=== PATIENT | male | born 1955 | race Caucasian/White ===

== ENCOUNTER 2020-03-31 13:43 | Outpatient (REF) | payer OTHER, SELFPAY ==
--- NOTE | 2020-03-31 | CT_ITS ---
EXAMINATION: CT CHEST SCREENING CLINICAL INFORMATION: Nicotine dependency. COMPARISON: CT chest 03/23/2019 TECHNIQUE: Multidetector volumetric CT imaging of the chest is performed without contrast using low dose technique. Additional 2D coronal and sagittal reformatted images and axial 3D maximum intensity projection (MIP) images are generated on the CT workstation. This CT examination was performed using dose optimization techniques as appropriate, variously including the following: *Automated exposure control *Adjustment of mA and/or kV according to patient size (this includes techniques or standardized protocols for targeted exams where dose is matched to indication/reason for exam; i.e. extremities or head) *Use of iterative reconstruction technique DLP: 241 mGy-cm FINDINGS: LUNGS: The lungs are well-expanded and clear of acute pneumonic process. Subpleural reticulation and cystic changes right upper lobe axial image 109/7, 2 mm calcified nodule right upper lobe image 145/7 appears stable. Previously seen right middle lobe medial segment nodule, left lower lobe subpleural nodule previously seen on image 268/4 is not visualized. There is a 3 mm noncalcified nodule along the left major fissure axial image 304/7 appears more prominent than the previous study. 2 mm calcified nodule left lower lobe axial image 376/7 appears stable. No new nodules are seen. MEDIASTINUM: The thyroid lobes are symmetrical and normal. The central trachea and the bronchi are widely patent. The heart size and great vessels are normal caliber. No abnormal size mediastinal lymph nodes seen. There is no pericardial effusion. There are coronary artery calcifications present. PLEURA: There is no pleural effusion. No pleural mass or thickening. AXILLA: No abnormal sized axillary lymph nodes seen. UPPER ABDOMEN: Visualized liver, spleen, pancreas, and bilateral adrenal glands are unremarkable. There is upper pole left renal cyst. OSSEOUS STRUCTURES: There is no lytic or sclerotic process seen. CT/CT lung screening IMPRESSION: Majority of the nodules are stable. 2 nodules in right middle lobe and left lower lobe subpleural location are not visualized at this time. There are no new nodules seen. There is no abnormal lymphadenopathy. ASSESSMENT: Lung-RADS category 2: Benign. RECOMMENDATION: Low-dose annual chest CT followup.
== END 2020-03-31 13:44 | disposition home or self-care (01) ==
LOC: HO.CT 13:43
PROVIDERS: PCP Family Medicine; Visit Provider Surgery
DX: Z12.2 Encounter for screening for malignant neoplasm of respiratory organs (principal); F17.210 Nicotine dependence, cigarettes, uncomplicated
CPT/HCPCS: 71250

== ENCOUNTER 2021-06-20 13:09 | Outpatient (REF) | payer OTHER, SELFPAY ==
--- NOTE | ~2021-06-20 | CT_ITS ---
EXAMINATION: CT CHEST SCREENING CLINICAL INFORMATION: Current smoker, asymptomatic. COMPARISON: CT lung 03/31/2020. TECHNIQUE: Multidetector volumetric CT imaging of the chest is performed without contrast using low dose technique. Additional 2D coronal and sagittal reformatted images and axial 3D maximum intensity projection (MIP) images are generated on the CT workstation. This CT examination was performed using dose optimization techniques as appropriate, variously including the following: *Automated exposure control *Adjustment of mA and/or kV according to patient size (this includes techniques or standardized protocols for targeted exams where dose is matched to indication/reason for exam; i.e. extremities or head) *Use of iterative reconstruction technique DLP: 65 mGy-cm FINDINGS: LUNGS: The lungs are well expanded and clear of acute pneumonic process. There is a 2 mm calcified nodule right upper lobe axial image 152/6, 3 mm nodule left major fissure, likely intrafissural lymph node on axial image 307/6, 2 mm calcified nodule left lower lobe superior segment axial image 380/6. There are no noncalcified nodules seen. MEDIASTINUM: The thyroid lobes are asymmetrical but otherwise normal. The central trachea and the bronchi are widely patent. The heart size and the great vessels are normal caliber. There is no pericardial effusion. No abnormal-sized mediastinal or hilar lymph nodes seen. PLEURA: There is no pleural effusion. No pleural mass or thickening. AXILLA: No lymphadenopathy. UPPER ABDOMEN: Visualized liver, spleen, pancreas and bilateral adrenal glands are unremarkable. There is a small exophytic cyst upper pole left kidney. OSSEOUS STRUCTURES: No lytic or sclerotic process seen. CT/CT lung screening IMPRESSION: Majority calcified nodules are stable. No new nodules seen. No abnormal lymphadenopathy. ASSESSMENT: Lung-RADS category 2: Benign RECOMMENDATION: Low-dose annual CT chest.
== END 2021-06-20 13:10 | disposition home or self-care (01) ==
LOC: HO.CT 13:09
PROVIDERS: PCP Family Medicine; Visit Provider Physician Assistant Medical
DX: F17.200 Nicotine dependence, unspecified, uncomplicated (principal)
CPT/HCPCS: 71271

== ENCOUNTER 2022-06-07 13:07 | Outpatient (REF) | payer OTHER, SELFPAY ==
--- NOTE | ~2022-06-07 | CT_ITS ---
EXAMINATION: CT CHEST SCREENING CLINICAL INFORMATION: Smoker, 1 pack per day 50 pack years. COMPARISON: CT chest 06/20/2021 TECHNIQUE: Multidetector volumetric CT imaging of the chest is performed without contrast using low dose technique. Additional 2D coronal and sagittal reformatted images and axial 3D maximum intensity projection (MIP) images are generated on the CT workstation. This CT examination was performed using dose optimization techniques as appropriate, variously including the following: *Automated exposure control *Adjustment of mA and/or kV according to patient size (this includes techniques or standardized protocols for targeted exams where dose is matched to indication/reason for exam; i.e. extremities or head) *Use of iterative reconstruction technique DLP: 68 mGy-cm FINDINGS: LUNGS: The lungs are well-expanded and clear of acute pneumonic process. A tumor calcified nodule right upper lobe axial image 144/6, 3 mm intrafissural nodule likely lymph node axial image 295/6 and a 2 mm nodule left lower lobe axial image 369/6 is stable. No new nodules are seen. MEDIASTINUM: The thyroid lobes are symmetric and normal. The central trachea and the bronchi widely patent. The heart size and the pulmonary vascularity is normal. There is mild coronary artery calcifications. No pericardial effusion seen. No abnormal size mediastinal or hilar lymph nodes seen. CORONARY ARTERY CALCIFICATION: Mild coronary artery calcifications. PLEURA: There is no pleural effusion. No pleural mass or thickening. AXILLA: No abnormal size axillary lymph nodes. UPPER ABDOMEN: Visualized liver, spleen, pancreas and gallbladder are unremarkable. There are bilateral renal cysts. OSSEOUS STRUCTURES: No aggressive lytic or sclerotic process seen. CT/CT lung screening IMPRESSION: Stable bilateral pulmonary nodules. No new nodules seen. Low-dose annual CT chest. ASSESSMENT: Lung-RADS category 2: Benign RECOMMENDATION: Low-dose annual CT
== END 2022-06-07 13:08 | disposition home or self-care (01) ==
LOC: HO.CT 13:07
PROVIDERS: PCP Family Medicine; Visit Provider Physician Assistant Medical
DX: Z12.2 Encounter for screening for malignant neoplasm of respiratory organs (principal); F17.210 Nicotine dependence, cigarettes, uncomplicated
CPT/HCPCS: 71271

== ENCOUNTER 2023-07-23 12:41 | Outpatient (REF) | payer OTHER, SELFPAY ==
--- NOTE | ~2023-07-23 | CT_ITS ---
EXAMINATION: CT CHEST SCREENING CLINICAL INFORMATION: Nicotine dependence, cigarettes. COMPARISON: None available. TECHNIQUE: Multidetector volumetric CT imaging of the chest is performed without contrast using low dose technique. Additional 2D coronal and sagittal reformatted images and axial 3D maximum intensity projection (MIP) images are generated on the CT workstation. This CT examination was performed using dose optimization techniques as appropriate, variously including the following: *Automated exposure control *Adjustment of mA and/or kV according to patient size (this includes techniques or standardized protocols for targeted exams where dose is matched to indication/reason for exam; i.e. extremities or head) *Use of iterative reconstruction technique DLP: 67 mGy-cm FINDINGS: LUNGS: The lungs are well expanded and clear of acute process. There is a 2 mm calcified nodule right upper lobe axial image 122/6 and a 2 mm nodule left lower lobe axial image 339/6. No noncalcified nodule is seen. There is no consolidation, mass or atelectasis seen. MEDIASTINUM: Thyroid lobes are symmetric and normal. The central trachea and the bronchi are widely patent. Heart size and the great vessels are normal caliber. No abnormal size mediastinal or hilar lymph nodes seen. No pericardial effusion. CORONARY ARTERY CALCIFICATION: There is mild coronary artery calcifications present. PLEURA: There is no pleural effusion. No pleural mass or thickening. AXILLA: No lymphadenopathy. UPPER ABDOMEN: Visualized liver, spleen, pancreas and bilateral adrenal glands are unremarkable. OSSEOUS STRUCTURES: No aggressive lytic or sclerotic process seen. CT/CT lung screening IMPRESSION: 2 mm calcified nodule right upper lobe and 2 mm nodule left lower lobe, stable. No new nodule seen. ASSESSMENT: Lung-RADS category 2: Benign RECOMMENDATION: Low-dose annual CT chest.
== END 2023-07-23 12:42 | disposition home or self-care (01) ==
LOC: HO.CT 12:41
PROVIDERS: PCP Family Medicine; Visit Provider Nurse Practitioner Family
DX: Z12.2 Encounter for screening for malignant neoplasm of respiratory organs (principal); F17.210 Nicotine dependence, cigarettes, uncomplicated
CPT/HCPCS: 71271

== ENCOUNTER 2025-02-14 13:11 | Outpatient (AMB) | payer OTHER, SELFPAY ==
--- NOTE | 2025-02-14 13:11 | MHC.PC.OV ---
Vital Signs 02/14/25 13:20 Height 6 ft Weight 164 lb BMI 22.2 Respiration 18 Pulse 67 Pulse Source Pulse Oximeter Temp 97.5 F Pulse Oximetry (%) 97 Oxygen Delivery Method Room Air Intake Visit Reasons: Routine / Dr Byers [employer] Required: No Accompanied by: Sister Allergies No Known Allergies Allergy (Verified 02/14/25 13:11) Tobacco use date assessed: 02/14/25 Fall risk assessment: No Falls in past year Last assessed Fall Risk: 02/14/25 HPI HPI Comments History of Present Illness Details The patient is a 69-year-old male presenting with essential tremors. The tremor condition is associated with a history of alcohol use, which has been in remission for nearly 28 years. The patient describes the tremors affecting his entire body at times, worsening with certain postures, and being currently managed with propranolol and primidone. He also reports past back and eye surgeries. The patient has a longstanding history of smoking for approximately 60 years and has expressed difficulty in cessation efforts despite previous successes in alcohol abstinence. The patient acknowledges a history of hypercholesterolemia managed with simvastatin and reports experiencing significant abdominal discomfort earlier in the week. This discomfort was described as severe, chely to labor pains, and was associated with constipation, which ultimately responded to [id number] therapies. Regarding his anxiety, the patient currently manages his symptoms with buspirone. Additionally, he notes a family history of lung cancer, as his mother succumbed to the disease. The patient expresses concern about hereditary risks, particularly cancer risk, given his smoking history and upcoming screening procedures. Medical History: - Essential Tremor - Alcohol Use Disorder, Remission for 28 years - Hypercholesterolemia - Anxiety Disorder - Nicotine Use Disorder Surgical History: - Back surgery approximately 20-25 years ago - Eye surgery in childhood Medications: - Propranolol for essential tremors - Primidone for essential tremors - Simvastatin for hypercholesterolemia - Buspirone for anxiety Family History: - Mother: Lung cancer Social:- Remission from alcohol use for almost 28 years - Long-term smoking habit, difficulty with cessation - Diet, nutrition, and smoking cessation discussed [facility]LY [facility] Medical History (Updated 02/14/25 @ 13:40 by Tomas Yung MD) Hyperlipidemia Essential tremor Establishing care with new doctor, encounter for Nicotine dependence, cigarettes, uncomplicated Social History Housing: Apartment Patient Tobacco Use Status: Current everyday Tobacco user Cigarette Packs Per Day: 0.5 Cigarettes Per Day: 10 Years Smoked: 50 e-Cigarette/Vaping Use: Never Used service: No Current occupational status: disabled Questionnaire PHQ-9 Over the last 2 weeks, how often have you been bothered by any of the following problems? 1. Little interest or pleasure in doing things: not at all 2. Feeling down, depressed, or hopeless: not at all 3. Trouble falling or staying asleep, or sleeping too much: not at all 4. Feeling tired or having little energy: not at all 5. Poor appetite or overeating: not at all 6. Feeling bad about yourself - or that you are a failure or have let yourself or your family down: not at all 7. Trouble concentrating on things, such as reading the newspaper or watching television: not at all 8. Moving or speaking so slowly that other people could have noticed. Or the opposite - being so fidgety or restless that you have been moving around a lot more than usual: not at all 9. Thoughts that you would be better off or of hurting yourself in some way: not at all Total score: 0 Depression Screening Interpretation: Negative Depression Screening Done: Yes 55559 - PHQ-9 Billing: Yes Source: Developed by Drs. Prasad Mancera, Teresa Molina, Refugio Mckenzie and colleagues, with an educational jelani from [employer]. Thrive Questionnaire Date Thrive assessed: 02/14/25 I am a: Patient What is your living situation today?: I have a steady place to live Within the past 12 months, did the food you bought not last and you didn't have the money to get more?: Never true Within the past 12 months, did you worry whether your food would run out before you got money to buy more?: Never true Do you have trouble paying for medicines?: No Do you have trouble getting transportation to medical appointments?: No Do you have trouble paying your heating and electricity bill?: No Do you have trouble taking care of your child, family member or friend?: No Do you have trouble with day-to-day activities such as bathing, preparing meals, shopping, managing finances, etc.?: No Are you currently unemployed and looking for a job?: No Are you interested in more education?: No THRIVE Score: 0 AUDIT C Alcohol Use Questionnaire (AUDIT-C) 1. How often do you have a drink containing alcohol?: Never 3. How often do you have six or more drinks on one occasion?: Never Total Score: 0 Score Reviewed/Action Taken: Yes SANAM-7 AMB Questionnaire SANAM-7 Date SANAM - 7 assessed: 02/14/25 Feeling nervous, anxious, or on edge: 0 = Not at all Not being able to stop or control worryin = Not at all Worrying too much about different things: 0 = Not at all Trouble relaxin = Not at all Being so restless that it is hard to sit still: 0 = Not at all Becoming easily annoyed or irritable: 0 = Not at all Feeling afraid as if something awful might happen: 0 = Not at all Total SANAM-7 score (0-4 normal; 5-9 mild; 10-14 moderate; 15-21 severe): 0 Source: Developed by Drs. Prasad Mancera, Teresa Molina, Refugio Mckenzie and colleagues, with an educational jelani from [employer]. SANAM-7 Assessment Billing SANAM-7 Assessment Tool: SANAM-7 Assessment 20018 Review of Systems Const Details: - Constitutional: Denies weight loss or gain - Neurological: Reports tremors in both upper and lower extremities and head - Gastrointestinal: Reports recent severe abdominal pain and constipation All systems reviewed & are unremarkable except as noted in HPI and below Physical exam (Primary Care) Vital Signs: Last Vital Signs Temp 97.5 F 02/14/25 13:20 Pulse 67 02/14/25 13:20 Resp 18 02/14/25 13:20 Pulse Ox 97 02/14/25 13:20 Oxygen Delivery Method Room Air 02/14/25 13:20 BMI result Body Mass Index 22.2 Tobacco/Smoking Status: Tobacco use Status Tobacco use date assessed 02/14/25 02/14/25 13:16 Patient Tobacco Use Status Current everyday Tobacco 02/14/25 13:24 e-Cigarette/Vaping Use Never Used 02/14/25 13:16 Are you ready to quit: Yes Tobacco cessation counseling provided: Yes Relapse Prevention: discussed the importance of a supportive environment and discussed extending NRT Number of minutes spent counselin CPT code: 95917 - 4-10 Minutes Depression Screening Interpretation: Negative Const Other: General: +Alert and oriented, Well nourished, No acute distress. Eye: Pupils are equal, round and reactive to light, Intact accommodation, Extraocular movements are intact, Normal conjunctiva, Vision unchanged, Blind in left eye. HENT: Normocephalic, Atraumatic, Tympanic membranes are clear, Normal hearing, Oral mucosa is moist, No pharyngeal erythema, Ear canals patent. Respiratory: Lungs CTA bilaterally, No wheeze, Respirations are non-labored. Cardiovascular: Regular rate, Regular rhythm, S1 auscultated, S2 auscultated, No murmur, Good pulses equal in all extremities, Normal peripheral perfusion, No edema. Gastrointestinal: Soft, Non-tender, Non-distended, Normal bowel sounds, No organomegaly. Musculoskeletal: Normal range of motion, Normal strength, No tenderness, No swelling, No deformity, Normal gait, Persistent tremors in upper extremities, lower extremities, and head. Integumentary: Warm, Dry, [place], Intact. Neurologic: Alert, Oriented, Normal sensory, Normal motor function, No focal defects, Cranial Nerves II-XII are grossly intact, Normal deep tendon reflexes. Psychiatric: Cooperative, Appropriate mood & affect, Normal judgment. Coding Level of Care Code New Pt Level 4 (62906) New Pt Prev Care >65yr (49278) Diagnoses Nicotine dependence, cigarettes, uncomplicated F17.210 Establishing care with new doctor, encounter for Z76.89 Essential tremor G25.0 Hyperlipidemia, unspecified hyperlipidemia type E78.5 Hyperlipidemia type: unspecified Additional Codes PHQ-9 - 75977 - PHQ-9 Billing: Yes ([id number]) SANAM-7 Assessment Billing - SANAM-7 Assessment Tool: SANAM-7 Assessment 91491 ([id number]) Vital Signs *Quality* - CPT code: 47498 - 4-10 Minutes ([id number]) Assessment & Plan Assessment & Plan (1) Nicotine dependence, cigarettes, uncomplicated: Comment: - Discussed smoking cessation. Initiated referral for nicotine patches to aid in cessation efforts. (over 50PPD) Code(s): F17.210 - Nicotine dependence, cigarettes, uncomplicated Category: Medical (2) Establishing care with new doctor, encounter for: Comment: - Baseline labs ordered Code(s): Z76.89 - Persons encountering health services in other specified circumstances Category: Medical (3) Essential tremor: Comment: - Current management with propranolol and primidone. Consideration of deep brain stimulation in the future. - Referred for a neurology evaluation for deep brain stimulation consultation. Code(s): G25.0 - Essential tremor Category: Medical (4) Hyperlipidemia: Comment: - Continued management with simvastatin. Continual monitoring of cholesterol levels recommended. Code(s): E78.5 - Hyperlipidemia, unspecified Category: Medical Qualifiers: Hyperlipidemia type: unspecified Qualified Code(s): E78.5 - Hyperlipidemia, unspecified Plan I reviewed the patient's current health concerns, including essential tremors, anxiety, and hypercholesterolemia. We discussed the management of his essential tremors with the potential for deep brain stimulation, offering a referral to neurology. We addressed his long-standing smoking habit, and I explained the risks associated with ongoing tobacco use, focusing on potential cancer risk and lung damage. I provided encouragement for smoking cessation and agreed to a nicotine replacement therapy plan using patches to assist in quitting. We also reviewed the management of his hypercholesterolemia with simvastatin and discussed the importance of periodic monitoring and health screenings, including an upcoming colonoscopy and lung cancer screening. I ensured the patient understood the potential implications of family history on his health, particularly regarding lung cancer, and discussed the importance of maintaining abstinence from alcohol. Orders: Orders CT lung screening Today F1210 - Nicotine dependence, cigarettes, uncomplicated Comprehensive Met. Panel Today Z76.89 - Persons encountering health services in other specified circumstances Hemoglobin A1c Today Z76.89 - Persons encountering health services in other specified circumstances Hepatitis A,B,C Profile Today Z76.89 - Persons encountering health services in other specified circumstances HIV Ab/Ag Today Z76.89 - Persons encountering health services in other specified circumstances Lipid Panel Today Z76.89 - Persons encountering health services in other specified circumstances TSH reflex Free T4 Today Z76.89 - Persons encountering health services in other specified circumstances Vitamin D 25-OH Total Today Z76.89 - Persons encountering health services in other specified circumstances Complete Blood Count Auto Diff Today Z76.89 - Persons encountering health services in other specified circumstances Syphilis Screen Today Z76.89 - Persons encountering health services in other specified circumstances Referrals Open Access Screening Colonoscopy Referral Z12.11 - Encounter for screening for malignant neoplasm of colon Neurology Referral G25.0 - Essential tremor Medications: New nicotine 1 patch transdermal DAILY 28 ea 0RF F17.210 - Nicotine dependence, cigarettes, uncomplicated Patient Instructions: - Continue taking propranolol and primidone as directed for tremor management. - Maintain abstinence from alcohol. - Follow the simvastatin regimen for cholesterol management. - Use nicotine patches as instructed to aid smoking cessation. - Participate in scheduled screenings for lung health and colon cancer. - Seek help immediately if experiencing any new or escalating symptoms.
[2025-02-14 13:20] VITALS: PULSE 67; RESP 18; TEMP 36.4; O2SAT 97; BMI 22.2
== END 2025-02-14 15:38 | disposition home or self-care (01) ==
PROVIDERS: PCP Student in an Organized Health Care Education/Training Program; Visit Provider Student in an Organized Health Care Education/Training Program
DX: Z00.00 Encounter for general adult medical examination without abnormal findings (principal); F17.210 Nicotine dependence, cigarettes, uncomplicated; Z76.89 Persons encountering health services in other specified circumstances; G25.0 Essential tremor; E78.5 Hyperlipidemia, unspecified

== ENCOUNTER 2025-02-14 13:11 | Outpatient (REF) | payer OTHER, SELFPAY ==
[2025-02-14 14:08] LABS: MANUAL DIFF FLAG NO
[2025-02-14 14:17] LABS: Hematocrit 37.6 % (42.0-52.0); Hemoglobin 13.0 g/dl (14.0-18.0); Imm Gran Abs Auto 0.01 X10*3/uL (0.00-0.03); Imm Gran Pct Auto 0.3 % (0.0-0.4); Lymphocytes Absolute Auto 1.2 X10*3/uL (1.2-4.9); Mean Corpuscular HGB Conc 34.6 g/dl (31.0-36.0); Mean Corpuscular Hemoglobin 31.9 pg (27.0-33.0); Mean Corpuscular Volume 92.4 fL (80.0-98.0); NRBC Abs Auto 0.000 X10*3/uL (0.0-0.012); NRBC Pct Auto 0.0 /100WBC (0.0-0.2); Platelet Count 168 X10*3/uL (160-400); Red Blood Count 4.07 X10*6/uL (4.60-5.80); White Blood Count 3.4 X10*3/uL (4.8-10.8)
[2025-02-14 15:03] LABS: Alanine Aminotransferase 41 U/L (0-40); Albumin Level 4.2 g/dL (3.5-5.0); Alkaline Phosphatase 65 U/L (39-117); Anion Gap 12 (12-20); Aspartate Amino Transferase 39 U/L (5-37); Blood Urea Nitrogen 22 mg/dL (9-16); Calcium 8.5 mg/dL (8.4-10.2); Carbon Dioxide 25 mmol/L (22-29); Chloride 105 mmol/L (96-108); Cholesterol 140 mg/dL (<200); Estimated Glomerular Filt Rate > 60; HDL Cholesterol 45 mg/dL (>40); Potassium 4.1 mmol/L (3.3-5.1); Sodium 138 mmol/L (135-145); Total Protein 6.6 g/dL (6.5-8.0); Triglycerides 118 mg/dL (<150)
[2025-02-15 03:49] LABS: Syphilis Screen Nonreactive (Nonreactive)
[2025-02-15 04:15] LABS: HBS Num1 0.28 mIU/mL (0-7.99); HBc Num1 0.10 S/CO (0.00-0.79); HBsAGNum1 0.33 S/CO (0.00-0.99); HIV Num 1 0.05 S/CO (0.00-0.99); Hepatitis A Antibody IgM 0.37 Index (0-0.79); Hepatitis B Surface Antigen Negative (Negative); ~HepC Num1 0.09 S/CO (0.00-0.79); ~Hepatitis A Antibody IgM Nonreactive (Nonreactive); ~Hepatitis B Surface Antibody NONREACTIVE (Nonreactive); ~Hepatitis C Antibody Nonreactive (Nonreactive)
== END 2025-02-14 13:12 | disposition home or self-care (01) ==
LOC: HO.LAB 13:11
PROVIDERS: PCP Student in an Organized Health Care Education/Training Program; Visit Provider Student in an Organized Health Care Education/Training Program
DX: Z76.89 Persons encountering health services in other specified circumstances (principal); G25.0 Essential tremor; E78.5 Hyperlipidemia, unspecified; F17.210 Nicotine dependence, cigarettes, uncomplicated; F10.91 Alcohol use, unspecified, in remission; Z71.6 Tobacco abuse counseling; Z79.899 Other long term (current) drug therapy
CPT/HCPCS: 36415; 80053; 80061; 82306; 83036; 84443; 85025; 86704; 86706; 86709; 86780; 86803; 87340; 87389; 96127; 99202; 99387

== ENCOUNTER 2025-04-06 13:34 | Outpatient (AMB) | payer OTHER, SELFPAY ==
[2025-04-06 13:40] VITALS: BP 118/82; PULSE 85; O2SAT 97; BMI 22.0
--- NOTE | 2025-04-06 13:40 | MHC.OFFVIS ---
Vital Signs 04/06/25 13:40 Height 6 ft Weight 162 lb 8 oz BMI 22.0 BP 118/82 Blood Pressure Location Rt brachial Position Sitting Pulse 85 Pulse Source Pulse Oximeter Pulse Oximetry (%) 97 Oxygen Delivery Method Room Air Intake Visit Reasons: INP-Essential tremor Intake Note: Essential Tremor Mill Set Up Required: No Accompanied by: Sister Allergies No Known Allergies Allergy (Verified 04/06/25 13:40) Medication List - Last Reconciled 04/06/25 by Angi Adams MD buspirone 30 mg PO BID cholecalciferol (vitamin D3) 1,250 mcg PO QWEEK 12 weeks nicotine 1 patch transdermal DAILY omeprazole 20 mg PO BID primidone 300 mg PO BID propranolol ER 120 mg PO BID simvastatin 20 mg PO BEDTIME HPI Comments Details: 70y/o male comes for further management of tremors managed by Dr. Maldonado. The tremors started 28 years ago . He used to be a heavy alcoholic and he stopped 28 years ago. He was initially seen at [facility] and then f/u with Dr. Sinclair. The tremors are in his hands, head , voice. stress worsens the tremors. He also has anxiety which worsens his tremors. He can do all his activities but is slower and has difficulty - cannot shave . spills his food often . No family h/o tremors. REPLACED BY [facility] Medical History (Updated 04/06/25 @ 14:25 by Angi Adams MD) Hyperlipidemia Essential tremor Establishing care with new doctor, encounter for Nicotine dependence, cigarettes, uncomplicated Social History Housing: Apartment Patient Tobacco Use Status: Current everyday Tobacco user Cigarette Packs Per Day: 0.5 Cigarettes Per Day: 10 Years Smoked: 50 e-Cigarette/Vaping Use: Never Used service: No Current occupational status: disabled Review of Systems ENT Reports Normal hearing present Neuro Reports Normal hearing present Physical Exam Vital Signs: Last Vital Signs Pulse 85 04/06/25 13:40 BP 118/82 04/06/25 13:40 Pulse Ox 97 04/06/25 13:40 Oxygen Delivery Method Room Air 04/06/25 13:40 BMI result Body Mass Index 22.0 Const General: cooperative, comfortable and no acute distress Nutritional Appearance: average body habitus Orientation/consciousness: patient oriented x3 Neuro Other: mild to moderate voice tremors Head tremors - moderate Timothy UE R.L action and postural tremors - moderate FN_ severe tremor s Gait - normal base , normal stride slow General: patient oriented x3, tone normal, moves all extremities and no focal motor deficits Cranial nerves: Yes Bilaterally intact EOM present, Yes Nystagmus not present, Yes Normal facial strength present, Yes Midline tongue present, Yes Symmetric palate elevation present, Yes Normal hearing present and Yes Ability to bilaterally elevate shoulders present Cognition (Neuro): normal cognition Motor exam (neuro): 5/5 motor strength present throughout and Normal motor muscle tone present throughout Deep tendon reflexes (DTR's): Right triceps reflex intensity grade: 1+, Left triceps reflex intensity grade: 1+, Rt Biceps (C5, C6): 1+, Left biceps reflex intensity grade: 1+, Right brachioradialis reflex intensity grade: 1+, Left brachioradialis reflex intensity grade: 1+, Right patellar reflex intensity grade: 1+ and Left patellar reflex intensity grade: 1+ Assessment & Plan Assessment & Plan (1) Essential tremor: Comment: - Current management with propranolol and primidone. Consideration of deep brain stimulation in the future. Code(s): G25.0 - Essential tremor Category: Medical Plan Discuss with Dr. Bates if he is eligible for DBS - patient has titatnium plates in his back and will not be able to have MRI. continue rpimidone 300mg bid propranolol ER 120 mg bid Orders: Referrals Neurosurgery Referral G25.0 - Essential tremor Coding Level of Care Code New Pt Level 4 (60444) Complex EM visit Add On G2211 Diagnoses Essential tremor G25.0
== END 2025-04-06 14:30 | disposition home or self-care (01) ==
LOC: HO.HSMS 13:34
PROVIDERS: PCP Student in an Organized Health Care Education/Training Program; Visit Provider Psychiatry & Neurology Neurology
DX: G25.0 Essential tremor (principal)
CPT/HCPCS: 99204; G2211

== ENCOUNTER → 2025-04-06 13:34 | Outpatient (BNVA) | payer OTHER, SELFPAY | PROVIDERS: PCP Student in an Organized Health Care Education/Training Program; Visit Provider Psychiatry & Neurology Neurology | DX: G25.0 Essential tremor (principal) | CPT/HCPCS: 99202 ==

== ENCOUNTER 2025-05-24 09:39 | Outpatient (REF) | payer OTHER, SELFPAY ==
--- NOTE | ~2025-05-24 | CT_ITS ---
EXAMINATION: CT LUNG SCREENING HISTORY: F17.210 - Nicotine dependence, cigarettes, uncomplicated TECHNIQUE: Low dose axial images were obtained from the sternal notch to upper abdomen without IV contrast per standard departmental protocol. Sagittal and coronal reformatted images were also obtained and reviewed. One or more of the following techniques was used for dose reduction: Automated exposure control, adjustment of the mA and/or kV according to patient size, use of iterative reconstruction technique. DLP: 59 mGy-cm COMPARISON: Previous chest CT scans most recent July 2023 FINDINGS: Lung nodules: There is a new 2 mm noncalcified peripheral or subpleural right upper lobe nodule adjacent to the major fissure axial image 86 series 4. 2 mm calcified right upper lobe nodule axial image 39 series 4. 3 mm calcified left lower lobe nodule axial image 113 series 4. 3 mm peripheral or subpleural left lower lobe nodule adjacent to the major fissure axial image 92 series 4. 2 mm right lower lobe nodule axial image 121 series 4. These are stable. Stable 2.2 cm cyst in the left lower lobe axial image 132 series 4. Scattered areas of mild bronchial wall thickening. Central airways are clear. Emphysema: mild Coronary Calcification: mild Aortic Arch Calcification: mild Additional Chest Findings: Normal heart size. There is no pleural or pericardial effusion. Normal caliber thoracic aorta. No mediastinal or hilar lymphadenopathy is identified. No thyroid nodule. Visualized upper abdomen: Left renal cyst. No chest wall mass or enlarged axillary lymph nodes. Degenerative changes of the spine and mild scoliosis. CT/CT lung screening IMPRESSION: Mild emphysema. New 2 mm peripheral or subpleural right upper lobe nodule near the major fissure. Otherwise small bilateral pulmonary nodules are stable. LUNG-RADS ASSESSMENT: Lung-RADS 2: Benign MANAGEMENT: Continue annual screening with LDCT in 12 months Category S: N/A Electronically signed by: Cece Cedillo MD 05/24/2025 10:22 AM [facility] [place]
== END 2025-05-24 09:40 | disposition home or self-care (01) ==
LOC: HO.CT 09:39
PROVIDERS: PCP Student in an Organized Health Care Education/Training Program; Visit Provider Physician Assistant Medical
DX: F17.210 Nicotine dependence, cigarettes, uncomplicated (principal)
CPT/HCPCS: 71271

== ENCOUNTER → 2025-05-24 09:43 | Outpatient (BNV) | payer OTHER, SELFPAY | PROVIDERS: PCP Student in an Organized Health Care Education/Training Program; Visit Provider Radiology Diagnostic Radiology | DX: F17.210 Nicotine dependence, cigarettes, uncomplicated (principal) | CPT/HCPCS: 71271 ==